=== PATIENT | female | born 1935 ===

== ENCOUNTER 2019-03-12 10:04 | Day surgery (SDC) | payer MEDICAID ==
[2019-03-05 10:32] VITALS: BMI 30.9
[~2019-03-12 10:04] MED LIST: Chondroitin/Hyaluronate Opth Syringe KIT (0.55 ml-0.5 ml) IO ONE; Cyclopentolate 1% Opth (2 ml) OD SCH; Hyaluronidase Human, Recombi 150 U/ML VIAL ONE; Ketorolac Tromethamine 0.5% Opth Soln (3 ml) OD SCH; Lactated Ringer's 500 ML IV ONE; Lidocaine Hydrochloride 10 ML INJ ONE; Ofloxacin 0.3% Ophth Soln OD SCH; Phenylephrine 2.5% Opht Soln OD SCH; Povidone Iodine Ophthalmic 5% Soln ONE; Tetracaine 0.5% Ophth (OR ONLY) ONE; Tobramycin/Dexamethasone (Tobradex) Opth Sol (2.5 ml) ONE; Tropicamide 1% Opht SOLUTION OD SCH
[2019-03-12] MEDS ORDERED: Lactated Ringer's 500 ML IV ONE (11:09)
[2019-03-12] MEDS ORDERED: acetaZOLAMIDE 500 mg SR Cap PO ONE ×2 (12:30→13:45)
[2019-03-12] MEDS ORDERED: Propofol 10 mg/ml Inj (20 ML) ONE (12:39)
[2019-03-12] MEDS: Carbachol 0.01% IO ONE ×2 (12:52→13:01)
[2019-03-12] MEDS: Tobramycin/Dexamethasone OPHT OINT ONE ×2 (12:53→13:01)
[2019-03-12 13:51] VITALS: TEMP 97.7
[2019-03-12 15:24] VITALS: BP 120/74; PULSE 71; RESP 18; O2SAT 98
--- NOTE | 2019-03-13 05:30 | OP ---
PROCEDURE DATE: 03/12/2019 PREOPERATIVE DIAGNOSIS: Cataract, right eye. POSTOPERATIVE DIAGNOSIS: Cataract, right eye. OPERATIVE PROCEDURE: Cataract extraction with implant, right eye. ANESTHESIA TYPE: Local, standby. COMPLICATIONS: None. DESCRIPTION OF PROCEDURE: Local anesthesia was achieved using a mixture of 1% lidocaine and Amphadase. The patient was then prepped and draped in the usual sterile fashion for ophthalmic surgery. Betadine drops were placed into the eye. A lid speculum was used, and a sideport incision was made using a 15-degree blade. Viscoelastic was used to fill the anterior chamber, and a 2.7-mm slit blade was used to create a surgical opening. Additional viscoelastic was placed into the eye, and a capsulorrhexis was performed. Hydrodissection and delineation were then carried out. Phacoemulsification of the nucleus was performed with ease, and cortical cleanup was achieved without difficulty. The capsular bag was refilled using viscoelastic, and a posterior chamber lens was inserted through the existing wound and placed into the capsular bag and easily centered. All viscoelastic was then aspirated from the eye, and Miochol was instilled for good symmetric pupillary constriction. The sideport wound was hydrated as necessary and a good watertight closure was observed at the conclusion of the case. A TobraDex soaked collagen shield was then placed over the eye. The lid speculum was removed. TobraDex ointment was placed onto the eye and a patch and shield were placed. The patient tolerated the procedure well. Jonathan Gerber MD
== END 2019-03-12 14:10 | disposition home or self-care (01) ==
LOC: C.SDS 10:04
PROVIDERS: ATTEND Ophthalmology
DX: H26.9 Unspecified cataract (principal)
CPT/HCPCS: 66984; J2704; J3470; J7120; V2632